=== PATIENT | female | born 1960 | race Caucasian/White ===

== ENCOUNTER → 2018-08-26 | Outpatient (CLI) | payer OTHER ==
--- NOTE | 2018-08-28 11:43 | MM ---
Reason for exam: screening (asymptomatic). Last mammogram was performed 5 years and 5 months ago. History: Patient is postmenopausal and has history of high-risk lesion on a previous biopsy at age 42. Excisional biopsy of the left breast, August 07, 2002. Taking estrogen for 4 years. Physical Findings: A clinical breast exam by your physician is recommended on an annual basis and results should be correlated with mammographic findings. MG Screening Mammo w CAD Bilateral CC and MLO view(s) were taken. Prior study comparison: March 20, 2013, bilateral digital screening mammo w/CAD. May 28, 2005, CAD bilateral diagnostic mammogram. The breast tissue is heterogeneously dense. This may lower the sensitivity of mammography. Stable distortion left breast from prior excision. No significant changes when compared with prior studies. ASSESSMENT: Benign, BI-RAD 2 RECOMMENDATION: Routine screening mammogram of both breasts in 1 year.
== END | disposition home or self-care (01) ==
LOC: RADMAMWWP 15:13
PROVIDERS: ATTEND Family Medicine
DX: Z12.31 Encounter for screening mammogram for malignant neoplasm of breast (principal)
CPT/HCPCS: 77067

== ENCOUNTER → 2018-10-08 | Outpatient (CLI) | payer OTHER ==
[2018-10-08 17:36] LABS: Basophils # (A) 0.1 k/uL (0-0.2); Basophils % (A) 1 %; Eosinophils # (A) 0.2 k/uL (0-0.7); Eosinophils % (A) 3 %; HCT 46.4 % (34.0-46.0); HGB 14.9 gm/dL (11.4-16.0); Lymphocytes # (A) 3.1 k/uL (1.0-4.8); Lymphocytes % (A) 44 %; MCHC 32.1 g/dL (31.0-37.0); MCV 93.5 fL (80.0-100.0); Mean Platelet Volume 7.4; Monocytes # (A) 0.4 k/uL (0-1.0); Monocytes % (A) 5 %; Neutrophils # (A) 3.2 k/uL (1.3-7.7); Neutrophils % (A) 45 %; Platelet Count 272 k/uL (150-450); RBC 4.96 m/uL (3.80-5.40); RDW 12.8 % (11.5-15.5); WBC 7.1 k/uL (3.8-10.6)
[2018-10-08 17:42] LABS: Appearance,Urine Cloudy (Clear); Bilirubin,Urine Negative (Negative); Blood,Urine Small (Negative); Color,Urine Yellow; Glucose,Urine (UA) Negative (Negative); Ketones,Urine Negative (Negative); Leukocyte Esterase,Urine Negative (Negative); Mucus,Urine Occasional /hpf; Nitrite,Urine Negative (Negative); Protein,Urine Negative (Negative); RBC,Urine 8 /hpf (0-5); Specific Gravity,Urine 1.016 (1.001-1.035); Squamous Epithelial Cell,Urine <1 /hpf (0-4); Urobilinogen,Urine <2.0 mg/dL (<2.0); WBC,Urine 6 /hpf (0-5)
[2018-10-08 18:00] LABS: Anion Gap 10 mmol/L; Blood Urea Nitrogen 16 mg/dL (7-17); Calcium 9.6 mg/dL (8.4-10.2); Carbon Dioxide 25 mmol/L (22-30); Chloride 104 mmol/L (98-107); Glucose 91 mg/dL (74-99); Sodium 139 mmol/L (137-145)
== END | disposition home or self-care (01) ==
LOC: LABPAT 15:47
PROVIDERS: ATTEND Urology
DX: Z01.812 Encounter for preprocedural laboratory examination (principal); T83.711A Erosion of implanted vaginal mesh to surrounding organ or tissue, initial encounter
CPT/HCPCS: 80048; 81001; 85025; 87086

== ENCOUNTER → 2019-09-19 | Outpatient (CLI) | payer OTHER ==
--- NOTE | 2019-09-20 16:20 | CT ---
EXAMINATION TYPE: CT abdomen pelvis w con DATE OF EXAM: 09/19/2019 COMPARISON: None HISTORY: hematuria CT DLP: 583.8 mGycm Automated exposure control for dose reduction was used. TECHNIQUE: Helical acquisition of images from the lung bases through the pelvis have been completed. CONTRAST: Performed with Oral Contrast and with IV Contrast, patient injected with 100 mL of Isovue 300. FINDINGS: LUNG BASES: No significant abnormality is appreciated. AORTA: No significant abnormality is appreciated. LIVER/GB: Liver shows no mass. Patient is post cholecystectomy. PANCREAS: No significant abnormality is seen. SPLEEN: No significant abnormality is seen. ADRENALS: No significant abnormality is seen. KIDNEYS: There is a large exophytic low dense focus at the mid to lower pole the left kidney anterior ly measuring 6.2 x 5.2 x 6.7 cm which shows peripheral calcifications. Additional hypodense focus in the medullary aspect of the left kidney measures approximately 2.4 cm. No significant enhancement. No hydronephrosis bilaterally. REPRODUCTIVE ORGANS: Not seen. BOWEL: No significant abnormality is seen. FREE AIR: No Free Air visible. ASCITES: None visible. PELVIC ADENOPATHY: None visualized. RETROPERITONEAL ADENOPATHY: No Retroperitoneal Adenopathy visible. URINARY BLADDER: No significant abnormality is seen. At the base of the bladder there is a focal met allic density present possibly at the level of the urethra measuring approximately 4 to 5 mm in size. OSSEOUS STRUCTURES: Bilateral metallic densities are also present at the level of the pubic rami ernesto aterally. Degenerative disc disease and lumbar spine. . IMPRESSION: BOSNIAK CYST CATEGORY IIF LESION, FOLLOW-UP. ABNORMAL METALLIC DENSITY AT BASE OF THE BLADDER, CONSID ER CYSTOSCOPY. Postop changes.
== END | disposition home or self-care (01) ==
LOC: RADCTMAIN 07:34
PROVIDERS: ATTEND Urology
DX: N28.1 Cyst of kidney, acquired (principal); R93.41 Abnormal radiologic findings on diagnostic imaging of renal pelvis, ureter, or bladder
CPT/HCPCS: 74177; Q9967 ×2

== ENCOUNTER → 2019-10-07 | Outpatient (CLI) | payer OTHER ==
--- NOTE | 2019-10-07 09:35 | BD ---
EXAMINATION TYPE: Axial Bone Density DATE OF EXAM: 10/07/2019 COMPARISON: 05/28/2005 CLINICAL HISTORY: M 81.0 Height: 61.5 Weight: 130.3 FRAX RISK QUESTIONS: Alcohol (3 or more units per day): no Family History (Parent hip fracture): no Glucocorticoids (More than 3mos): no (Ex: prednisone, prednisolone, methylprednisolone, dexamethasone, and hydrocortisone). History of Fracture in Adulthood: no Secondary Osteoporosis: 1. Type 1 Diabetes: no 2. Hyperthyroidism: no 3. Menopause before 45: no 4. Malnutrition: no 5. Chronic liver disease: no Rheumatoid Arthritis: no Current Tobacco Use: no RISK FACTORS HISTORY OF: Family History of Osteoporosis: unsure Active: sometimes Diet low in dairy products/other sources of calcium: yes Postmenopausal woman: 2003 hysterectomy Lost more than 2 inches in height since high school: no MEDICATIONS: lipitor, vit d2 Additional History: EXAM MEASUREMENTS: Bone mineral densitometry was performed using the [email or web address] System. Bone mineral density as measured about the Lumbar spine is: ----- L1-L4(G/cm2): 1.017 T Score Values are as follows: ----- L2: -0.7 ----- L3: -0.7 ----- L4: -1.8 ----- L1-L4: -1.4 Bone mineral density has: increased 7.9 % since study of: 05.28.2005 Bone mineral density about the R hip (g/cm2): 0.806 Bone mineral density about the L hip (g/cm2): 0.884 T Score values are as follows: -----R Neck: -1.7 -----L Neck: -1.1 -----R Total: -1.2 -----L Total: -1.1 Bone mineral density has: decreased -10.9 % since study of: 05.28.2005 IMPRESSION: Osteopenia (T Score between -2.5 and -1). There is slightly increased risk of fracture and the patient may be considered for treatment. Re-Screen 2-5 years. NOTE: T-SCORE=SD OF THE YOUNG ADULT MEAN.
--- NOTE | 2019-10-08 09:03 | MM ---
Reason for exam: screening (asymptomatic). Last mammogram was performed 1 year and 1 month ago. History: Patient is postmenopausal and has history of high-risk lesion on a previous biopsy at age 42. Excisional biopsy of the left breast, August 07, 2002. Taking estrogen for 4 years. Physical Findings: A clinical breast exam by your physician is recommended on an annual basis and results should be correlated with mammographic findings. MG Screening Mammo w CAD Bilateral CC and MLO view(s) were taken. Prior study comparison: August 26, 2018, bilateral MG screening mammo w CAD. March 20, 2013, bilateral digital screening mammo w/CAD. The breast tissue is heterogeneously dense. This may lower the sensitivity of mammography. Benign appearing bilateral calcifications. No suspicious abnormality on the left breast. New right upper inner quadrant posterior depth focal asymmetry. Post surgical change on the left breast. ASSESSMENT: Incomplete: need additional imaging evaluation, BI-RAD 0 RECOMMENDATION: Special view mammogram of the right breast. If lesion persists on supplemental views, image directed ultrasound is recommended. [facility] will attempt to contact patient to return for supplemental views and ultrasound if indicated.
== END | disposition home or self-care (01) ==
LOC: RADMAMWWP 06:59
PROVIDERS: ATTEND Family Medicine
DX: Z12.31 Encounter for screening mammogram for malignant neoplasm of breast (principal); M85.80 Other specified disorders of bone density and structure, unspecified site
CPT/HCPCS: 77067; 77080

== ENCOUNTER → 2019-10-20 | Outpatient (CLI) | payer OTHER ==
--- NOTE | 2019-10-20 11:54 | MM ---
Reason for exam: additional evaluation requested from abnormal screening. Last mammogram was performed less than 1 month ago. History: Patient is postmenopausal and has history of high-risk lesion on a previous biopsy at age 42. Excisional biopsy of the left breast, August 07, 2002. Took estrogen for 4 years. Physical Findings: Nurse did not find any significant physical abnormalities on exam. MG Work Up Mamm w CAD RT Spot compression CC, spot compression MLO, and ML view(s) were taken of the right breast. Prior study comparison: October 07, 2019, bilateral MG screening mammo w CAD. August 26, 2018, bilateral MG screening mammo w CAD. The breast tissue is heterogeneously dense. This may lower the sensitivity of mammography. Benign appearing calcifications in the right breast. Medial asymmetry appears similar back to 2012 and no definitive correlate on MLO or ML. These results were verbally communicated with the patient and result sheet given to the patient on 10/20/19. ASSESSMENT: Incomplete: need additional imaging evaluation, BI-RAD 0 RECOMMENDATION: Ultrasound. (left) left breast pain
--- NOTE | 2019-10-20 11:56 | USB ---
Reason for exam: additional evaluation requested from abnormal screening. History: Patient is postmenopausal and has history of high-risk lesion on a previous biopsy at age 42. Excisional biopsy of the left breast, August 07, 2002. Took estrogen for 4 years. US Breast Workup Limited LT Left limited breast ultrasound including focal area of concern, retroareolar and axilla demonstrates no cystic or solid lesion seen. No suspicious sonographic finding. Dense tissue throughout. These results were verbally communicated with the patient and result sheet given to the patient on 10/20/19. ASSESSMENT: Negative, BI-RAD 1 RECOMMENDATION: Return to routine screening mammogram schedule for both breasts. Manage patient on a clinical basis.
== END | disposition home or self-care (01) ==
LOC: RADMAMWWP 10:28
PROVIDERS: ATTEND Family Medicine
DX: R92.8 Other abnormal and inconclusive findings on diagnostic imaging of breast (principal)
CPT/HCPCS: 77065

== ENCOUNTER → 2020-10-06 | Outpatient (CLI) | payer OTHER ==
--- NOTE | 2020-10-06 15:58 | CT ---
EXAMINATION TYPE: CT abdomen pelvis wo/w con DATE OF EXAM: 10/06/2020 COMPARISON: 09/19/2019 HISTORY: 60-year-old female N28.1, Left renal cyst. TECHNIQUE: Contiguous axial scanning of the abdomen and pelvis before and after administration of 100 ml Isovue 300 IV contrast. Delayed images through the kidneys and coronal/sagittal reconstructions performed. CT DLP: 1864 mGycm Automated exposure control for dose reduction was used. FINDINGS: Heart normal size without pericardial effusion. Lung bases clear without pleural effusion. Tiny hiatal hernia. No focal liver lesion or biliary ductal dilatation. Portal venous system is patent. Cholecystectomy clips. Adrenal glands, spleen, and pancreas appear within normal limits. There is mild right-sided hydronephrosis with a 6 mm calculus at the upper right ureter. Additional few subcentimeter cortical hypodensities in the right kidney too small for accurate CT minor racterization, likely tiny cortical cysts. Larger 1.9 cm centrally located left mid pole renal cyst is unchanged. A cystic lesion along the anterior mid left kidney entirely exophytic measures 6.1 x 5.1 cm versus 6. 2 x 5.1 cm, previously, unchanged. Peripheral rim calcifications measure up to 2.5 mm thick. No addit ional associated complexity. No dilated small bowel, free fluid, or free air. Moderate prostatic calcifications infrarenal abdominal aorta and common iliac arteries. Mild circumferential wall thickening ascending colon and proximal transverse colon may relate to poor distention. No significant stool burden. Mild diverticular change along the proximal sigmoid colon. Bladder urine distended. Uterus surgically absent. Note that neither ovary is clearly visualized. Rig ht sided pelvic lymph nodes. No abnormal fluid collection the pelvis or pelvic lymphadenopathy. Bones: Mild degenerative change at the hips. Moderate degenerative disc disease L2-L3. IMPRESSION: 1. A 6 MM CALCULUS AT THE UPPER RIGHT URETER WITH MILD OBSTRUCTIVE UROPATHY. CORRELATE FOR RENAL COLI C SYMPTOMS. 2. MILDLY COMPLEX CYST MEASURING 6.1 X 5.1 CM EXOPHYTIC FROM THE ANTERIOR MID LEFT KIDNEY SHOWS THICK ENED PERIPHERAL CALCIFICATIONS. STABLE FOR 1 YEAR 1 MONTH. THIS CAN BE CLASSIFIED A BOSNIAK CATEGO RY 2F CYST AND ANNUAL SURVEILLANCE FOR A TOTAL OF 5 YEARS IS RECOMMENDED. 3. ADDITIONAL SMALLER BENIGN CORTICAL CYSTS WITHIN THE KIDNEYS. 4. MILD CIRCUMFERENTIAL WALL THICKENING ALONG THE ASCENDING AND PROXIMAL TRANSVERSE COLON MAY RELATE TO POOR DISTENTION. CORRELATE TO EXCLUDE NONSPECIFIC MILD COLITIS. 5. MILD PROXIMAL SIGMOID DIVERTICULOSIS.
== END | disposition home or self-care (01) ==
LOC: RADCTMAIN 12:55
PROVIDERS: ATTEND Urology
DX: N20.1 Calculus of ureter (principal); K57.30 Diverticulosis of large intestine without perforation or abscess without bleeding; N28.1 Cyst of kidney, acquired; K63.89 Other specified diseases of intestine
CPT/HCPCS: 74178; Q9967

== ENCOUNTER → 2020-10-10 | Outpatient (CLI) | payer OTHER ==
--- NOTE | 2020-10-10 15:35 | XR ---
KUB HISTORY: N 20.1, abdomen pain From a KUB and [address] scan 10/06/2020 Surgical clips present right upper quadrant. Large calcified renal cyst is again noted in the left up per quadrant. Diverticular changes are present associated with the sigmoid colon. Postop changes are noted at the pubic bones. Proximal right ureteral calcification is not seen. There is a calcification present measuring approximately 4 mm in the right hemipelvis which correlates to only outside the le suzi of the distal ureter. Bones are showing degenerative disc changes, spinal curvature. IMPRESSION: Calcifications in the pelvis not felt likely to represent ureteral calculi.
== END | disposition home or self-care (01) ==
LOC: RADXRMAIN 14:23
PROVIDERS: ATTEND Urology
DX: N20.1 Calculus of ureter (principal)
CPT/HCPCS: 74018

== ENCOUNTER → 2020-10-26 | Outpatient (CLI) | payer OTHER ==
--- NOTE | 2020-10-26 17:32 | XR ---
EXAMINATION TYPE: XR abdomen 1V DATE OF EXAM: 10/26/2020 8:25 AM CLINICAL HISTORY: Calculus TECHNIQUE: Supine images of the abdomen and pelvis were obtained COMPARISON: 10/10/[address] abdomen pelvis 10/06/2020. FINDINGS: Surgical clips in the right upper quadrant. Large calcified left renal cyst redemonstrated in the left upper quadrant. Nonspecific bowel gas pattern. Right pelvic phleboliths redemonstrated. A 6 mm calcification within the right hemipelvis was not seen on 10/10/2020 KUB comparison. Osseous str uctures are intact. IMPRESSION: Right pelvic 6 mm calcification not seen on 10/10/2020 comparison likely represents distal ureteral ca lculus.
== END | disposition home or self-care (01) ==
LOC: RADXRMAIN 08:12
PROVIDERS: ATTEND Urology
DX: N20.1 Calculus of ureter (principal)
CPT/HCPCS: 74018

== ENCOUNTER → 2020-10-31 | Outpatient (CLI) | payer OTHER ==
--- NOTE | 2020-10-31 09:54 | XR ---
EXAMINATION TYPE: XR KUB DATE OF EXAM: 10/31/2020 COMPARISON: 10/10/2020 HISTORY: Stone TECHNIQUE: One view abdominal series FINDINGS: The osseous structures are intact. The bowel gas pattern is nonspecific. Large rounded calcification in the left upper quadrant noted compatible with calcified cyst. Pelvic densities overlying the pubi c rami are noted. Surgical clips in the gallbladder fossa. Degenerative change of the spine. There ap pears to be a persistent calcification the right hemipelvis measuring 2 mm in diameter. IMPRESSION: 1. Suspicious calcification right hemipelvis measuring 2 mm.
== END | disposition home or self-care (01) ==
LOC: RADXRMAIN 08:39
PROVIDERS: ATTEND Urology
DX: N20.1 Calculus of ureter (principal)
CPT/HCPCS: 74018

== ENCOUNTER → 2020-11-09 | Outpatient (CLI) | payer OTHER ==
[2020-11-09 12:46] LABS: Basophils % (A) 1 %; Eosinophils # (A) 0.1 k/uL (0-0.7); Eosinophils % (A) 2 %; HCT 42.7 % (34.0-46.0); HGB 14.3 gm/dL (11.4-16.0); Lymphocytes # (A) 2.5 k/uL (1.0-4.8); Lymphocytes % (A) 36 %; MCH 30.6 pg (25.0-35.0); MCHC 33.4 g/dL (31.0-37.0); MCV 91.6 fL (80.0-100.0); Mean Platelet Volume 7.9; Monocytes # (A) 0.3 k/uL (0-1.0); Monocytes % (A) 4 %; Neutrophils % (A) 56 %; Platelet Count 290 k/uL (150-450); RBC 4.66 m/uL (3.80-5.40); RDW 13.1 % (11.5-15.5); WBC 7.1 k/uL (3.8-10.6)
[2020-11-09 13:01] LABS: African American GFR (CKD) >90 (>60 ml/min/1.73 sqM); Anion Gap 8 mmol/L; Blood Urea Nitrogen 17 mg/dL (7-17); Calcium 9.6 mg/dL (8.4-10.2); Carbon Dioxide 24 mmol/L (22-30); Chloride 106 mmol/L (98-107); Glucose 115 mg/dL (74-99); Non-African American GFR(CKD) >90 (>60 ml/min/1.73 sqM); Potassium 4.2 mmol/L (3.5-5.1); Sodium 138 mmol/L (137-145)
[2020-11-09 13:14] LABS: Appearance,Urine Clear (Clear); Bacteria,Urine Rare /hpf; Bilirubin,Urine Negative (Negative); Blood,Urine Small (Negative); Color,Urine Yellow; Glucose,Urine (UA) Negative (Negative); Ketones,Urine Negative (Negative); Leukocyte Esterase,Urine Trace (Negative); Mucus,Urine Rare /hpf; Nitrite,Urine Negative (Negative); PH, Urine 6.5 (5.0-8.0); Protein,Urine Negative (Negative); RBC,Urine 15 /hpf (0-5); Squamous Epithelial Cell,Urine 1 /hpf (0-4); Urobilinogen,Urine <2.0 mg/dL (<2.0); WBC,Urine 2 /hpf (0-5)
== END | disposition home or self-care (01) ==
LOC: LABPAT 12:05
PROVIDERS: ATTEND Urology
DX: Z01.818 Encounter for other preprocedural examination (principal); N20.1 Calculus of ureter
CPT/HCPCS: 80048; 81001; 85025; 87086

== ENCOUNTER 2020-11-16 08:27 | Day surgery (SDC) | payer OTHER ==
[2020-11-15 13:20] VITALS: BMI 27.1
--- NOTE | 2020-11-15 16:36 | P.GSHP ---
History of Present Illness H&P Date: 11/15/20 60 yo female with intermittent ureteral colic due to a 4 mm distal right ureteral stone who comes for right ureteroscopy with laser lithotripsy The risks complications and alternatives have been discussed. - Constitutional Constitutional: Denies chills, Denies fever - EENT Eyes: denies blurred vision, denies pain Ears, nose, mouth and throat: Denies headache, Denies sore throat - Cardiovascular Cardiovascular: Denies chest pain, Denies shortness of breath - Respiratory Respiratory: Denies cough, Denies 7 - Gastrointestinal Gastrointestinal: Denies abdominal pain, Denies diarrhea, Denies nausea, Denies vomiting - Genitourinary (Female) Genitourinary: Denies dysuria, Denies hematuria - Genitourinary (Male) Genitourinary: Denies dysuria, Denies hematuria - Musculoskeletal Musculoskeletal: Denies myalgias - Integumentary Integumentary: Denies pruritus, Denies rash - Neurological Neurological: Denies numbness, Denies weakness - Psychiatric Psychiatric: Denies anxiety, Denies depression - Endocrine Endocrine: Denies fatigue, Denies weight change Past Medical History Past Medical History: Hyperlipidemia Additional Past Medical History / Comment(s): osteoporosis, kidney stones History of Any Multi-Drug Resistant Organisms: None Reported Past Surgical History: Bladder Surgery, Section, Cholecystectomy, Hysterectomy Additional Past Surgical History / Comment(s): bladder suspension with urethral graft, c/s x3, lt breast biopsy Past Anesthesia/Blood Transfusion Reactions: No Reported Reaction Smoking Status: Former smoker - Past Family History Mother Family Medical History: No Reported History Medications and Allergies Home Medications Medication Instructions Recorded Confirmed Type Atorvastatin [Lipitor] 20 mg PO HS 10/10/18 11/15/20 History Ergocalciferol (Vitamin D2) 50,000 unit PO Q7D 10/10/18 11/15/20 History [Vitamin D2] Vitamin C/Biotin [Hair, Skin and 1 tab PO DAILY 11/15/20 11/15/20 History Nails] Allergies Allergy/AdvReac Type Severity Reaction Status Date / Time No Known Allergies Allergy Verified 11/15/20 13:20 Surgical - Exam - General well developed, well nourished, moderate distress - Eyes PERRL - ENT normal mucosa - Neck trachea midline - Respiratory normal expansion, normal respiratory effort - Cardiovascular Rhythm: regular - Abdomen Abdomen: soft, non tender - Integumentary no rash, no growths - Neurologic normal coordination, normal sensation - Musculoskeletal normal gait, normal posture - Psychiatric oriented to time, oriented to person, oriented to place, speech is normal, memory intact Results - Imaging Abdominal x-ray: report reviewed, image reviewed CT scan - abdomen: report reviewed, image reviewed CT scan - pelvis: report reviewed, image reviewed Assessment and Plan Assessment: Impression: right ureteral stone Plan: cysto with right ureteroscopy and laser lithotripsy
[~2020-11-16 08:27] MED LIST: DEXAMETHASONE SOD PHOSPHATE 4 MG/ML 1 ML VIAL IV ONE; HYDROmorphone 0.5 MG/0.5 ML SYRINGE IVP PRN; LACTATED RINGERS 1,000 ML IV SCH; ONDANSETRON 4 MG/2 ML VIAL IVP ONE
[2020-11-16 08:55] VITALS: RESP 16
[2020-11-16] MEDS ORDERED: LIDOCAINE 1% (10MG/ML) FOR IV START INTRADERMA ONE (08:58)
--- NOTE | 2020-11-16 08:59 | XR ---
EXAMINATION TYPE: XR KUB DATE OF EXAM: 11/16/2020 8:41 AM CLINICAL HISTORY: Right-sided kidney stones. TECHNIQUE: Two Upright KUB images of the abdomen are obtained. COMPARISON: Abdominal x-ray October 31, 2020. CT October 06, 2020. FINDINGS: Persistent 2-3 calcifications right pelvis measuring 3 to 4 mm in size correspond to phlebo liths and possible distal ureteral calculus not significantly changed from most recent x-ray. Cholecystectomy clips. Overall nonobstructive bowel gas pattern. Exophytic lateral rim calcified cyst from the left kidney redemonstrated. IMPRESSION: As above.
[2020-11-16] MEDS ORDERED: PROPOFOL 10 MG/ML 20 ML VIAL IV ONE (09:32)
[2020-11-16] MEDS ORDERED: fentaNYL (PF) 50 MCG/ML 2 ML AMP ONE (09:32)
[2020-11-16] MEDS ORDERED: MIDAZOLAM 2 MG/2 ML VIAL ONE (09:32)
[2020-11-16] MEDS ORDERED: LIDOCAINE 1% INJ 10MG/ML (20 ML MDV) ONE (09:32)
[2020-11-16] MEDS ORDERED: ePHEDrine SULFATE/0.9% NACL/PF 50 MG/5 ML SYRINGE IV ONE (09:32)
--- NOTE | 2020-11-16 10:38 | FL ---
EXAMINATION TYPE: FL guidance operating room DATE OF EXAM: 11/16/2020 HISTORY: Fluoroscopy time 3 seconds of fluoroscopy provided. IMPRESSION: 1. Fluoroscopy time.
--- NOTE | 2020-11-16 10:39 | P.OP ---
Date of Procedure: 11/16/20 Preoperative Diagnosis: Right ureteral stone Postoperative Diagnosis: Same Procedure(s) Performed: Cystoscopy, right ureteroscopy with laser lithotripsy Anesthesia: JESSICA Surgeon: Shyam Oh Estimated Blood Loss (ml): 0 Pathology: other (Stone) Condition: stable Disposition: PACU Indications for Procedure: The patient is 60. There is a history of stones. She has a 4 mm distal right ureteral stone for the last couple weeks she's been unable to pass. She comes for ureteroscopy and laser lithotripsy on the right side Description of Procedure: The patient is brought to the operating suite. She's given general anesthesia. She's placed in lithotomy position with a sterile prep and drape. Fluoroscopy identifies the stone in the right distal ureter. Cystoscopy Foroblique lens and 21-Bolivian sheath identifies normal urethra. Ureteral orifices are normal. The bladder mucosa is unremarkable. I dilate the right ureteral orifice within a cone-tipped catheter. Pass the 7-Bolivian mini ureteroscope up the right ureter to's the stone. With the 200 laser probe the stone was broken into tiny pieces and flushed out of the ureter. There is not a significant amount of edema for a stent to be placed. Bladder strain and the stone fragments are sent to pathology. The patient is awakened and will be discharged home upon recovery. Condition is good.
[2020-11-16 10:42] VITALS: TEMP 97.8
[2020-11-16 11:49] VITALS: BP 172/81; PULSE 79
== END 2020-11-16 12:03 | disposition home or self-care (01) ==
LOC: OR 08:27
PROVIDERS: ATTEND Urology
DX: N20.1 Calculus of ureter (principal); E78.5 Hyperlipidemia, unspecified; M81.0 Age-related osteoporosis without current pathological fracture; Z79.899 Other long term (current) drug therapy; Z87.442 Personal history of urinary calculi; Z98.891 History of uterine scar from previous surgery; Z90.710 Acquired absence of both cervix and uterus; Z90.49 Acquired absence of other specified parts of digestive tract; Z98.890 Other specified postprocedural states; Z87.891 Personal history of nicotine dependence
CPT/HCPCS: 82365; 74018; 52353; C1758; C1769; J2250; J1100; J2405; J0690; J2001; J3010; J2704

== ENCOUNTER → 2021-01-27 | Outpatient (CLI) | payer OTHER ==
--- NOTE | 2021-01-30 11:04 | MM ---
Reason for exam: screening (asymptomatic). Last mammogram was performed 1 year and 3 months ago. History: Patient is postmenopausal and has history of high-risk lesion on a previous biopsy at age 42. Family history of breast cancer in maternal grandmother. Excisional biopsy of the left breast, August 07, 2002. Took estrogen for 4 years. Physical Findings: A clinical breast exam by your physician is recommended on an annual basis and results should be correlated with mammographic findings. MG Screening Mammo w CAD Bilateral CC and MLO view(s) were taken. Prior study comparison: October 07, 2019, bilateral MG screening mammo w CAD. August 26, 2018, bilateral MG screening mammo w CAD. The breast tissue is heterogeneously dense. This may lower the sensitivity of mammography. Finding #1: There is stable architectural distortion in the upper outer quadrant, middle position of the left breast consistent with known excisional change. Finding #2: There are typically benign round, regional calcifications in both breasts, greater in the right breast. Indistinct grouped calcifications left breast. New finding and more defined since October 07, 2019 and August 26, 2018. ASSESSMENT: Incomplete: need additional imaging evaluation, BI-RAD 0 RECOMMENDATION: Special view mammogram of the right breast. [facility] will attempt to contact patient to return for supplemental views.
== END | disposition home or self-care (01) ==
LOC: RADMAMWWP 09:47
PROVIDERS: ATTEND Physician Assistant
DX: Z12.31 Encounter for screening mammogram for malignant neoplasm of breast (principal)
CPT/HCPCS: 77067

== ENCOUNTER → 2021-02-02 | Outpatient (CLI) | payer OTHER ==
--- NOTE | 2021-02-02 09:38 | MM ---
Reason for exam: additional evaluation requested from abnormal screening. Last mammogram was performed less than 1 month ago. History: Patient is postmenopausal and has history of high-risk lesion on a previous biopsy at age 42. Family history of breast cancer in maternal grandmother. Excisional biopsy of the left breast, August 07, 2002. Took estrogen for 4 years. Physical Findings: Nurse did not find any significant physical abnormalities on exam. MG Work Up Mamm w CAD RT CC with magnification, LM with magnification, and LM view(s) were taken of the right breast. Prior study comparison: January 27, 2021, bilateral MG screening mammo w CAD. October 20, 2019, right breast MG work up mamm w CAD RT. Finding: There is a faint 2.8cm indeterminate, heterogeneous, grouped/clustered calcifications in the slight upper inner quadrant, posterior position of the right breast. These results were verbally communicated with the patient and result sheet given to the patient on 02/02/21. ASSESSMENT: Suspicious, BI-RAD 4 RECOMMENDATION: Stereotactic core biopsy of the right breast. Called Dr. Cruz's office with mammographic findings. Patient does not want to schedule biopsy now. States she needs to speak with insurance and family physician. Dr. Cruz's office notified to follow up with patient. PRELIMINARY REPORT CALLED AND FAXED TO DR. CRUZ ON 02/02/21.
== END | disposition home or self-care (01) ==
LOC: RADMAMWWP 07:01
PROVIDERS: ATTEND Family Medicine
DX: R92.8 Other abnormal and inconclusive findings on diagnostic imaging of breast (principal)
CPT/HCPCS: 77065

== ENCOUNTER → 2021-02-27 | Day surgery (SDC) | payer OTHER ==
[2021-02-27 09:22] VITALS: RESP 18
[2021-02-27 10:54] VITALS: BP 151/78; PULSE 71; TEMP 98.3
--- NOTE | 2021-02-27 18:53 | MM ---
EXAMINATION TYPE: MG stereo VAD BX RT DATE OF EXAM: 02/27/2021 COMPARISON: 01/27/2021 and 02/02/2021 CLINICAL HISTORY: 60-year-old female referred for stereotactic core needle biopsy of a large group of amorphous 1:00 posterior right breast microcalcifications. TECHNIQUE: Stereotactic guided core biopsy of the posterior right breast. FINDINGS: The procedure of stereotactic guided core biopsy was explained to the patient. Benefits, alternatives, and risks were discussed. An informed consent was then obtained. The [facility] pathway for biopsy was chosen. Shortness pathway was a CC from above approach. I performed the localization followed by the remainder of the procedure. A vacuum assisted biopsy gun was used to obtain 6 core samples. The patient tolerated the procedure well without any immediate complication. The patient was kept in the radiology department for short stay after the procedure and then discharged home in stable condition. Targeted calcifications are identified in specimen mammogram. Post biopsy mammogram shows the clip to appear in satisfactory position relative to the targeted area of concern on the preprocedure images. IMPRESSION: SUCCESSFUL, UNCOMPLICATED STEREOTACTIC GUIDED CORE BIOPSY OF A LARGE GROUP OF AMORPHOUS CALCIFICATIONS IN THE POSTERIOR 1:00 RIGHT BREAST. FULL PATHOLOGY RESULTS TO FOLLOW. Pathology Results: Benign RIGHT BREAST, CORE BIOPSY: Hypocellular fibrosis with microcalcification and sclerosing adenosis (see note). Negative for diagnostic in situ or invasive carcinoma. Recommendation Follow up mammogram of the right breast in 6 months. MTDD
== END ==
LOC: RADMAMWWP 09:02
PROVIDERS: ATTEND Family Medicine
DX: R92.0 Mammographic microcalcification found on diagnostic imaging of breast (principal); N60.31 Fibrosclerosis of right breast; R92.8 Other abnormal and inconclusive findings on diagnostic imaging of breast
CPT/HCPCS: 88305; 88342; 88341; 19081; A4648; J2001

== ENCOUNTER → 2022-07-04 | Outpatient (CLI) | payer OTHER ==
--- NOTE | 2022-07-05 18:30 | MM ---
Reason for Exam: Screening (asymptomatic). Last mammogram was performed 1 year(s) and 6 month(s) ago. Patient History: Menarche at age 11. Left ovary removed at age 40. Right ovary removed at age 40. Hysterectomy at age 40. Postmenopausal. Patient used Estrogen for 4 years. 02/27/2021, Benign Core Biopsy on the right side. 08/07/2002, Benign Excisional Biopsy on the left side. Maternal grandmother had breast cancer at or over age 50. Niece had breast cancer, age 40. Risk Values: Solange 5 year model risk: 1.7%. NCI Lifetime model risk: 7.2%. Prior Study Comparison: 10/20/2019 Right Diagnostic Mammogram, [facility]. 01/27/2021 Bilateral Screening Mammogram, [facility]. 02/02/2021 Right Diagnostic Mammogram, [facility]. Tissue Density: The breast tissue is heterogeneously dense. This may lower the sensitivity of mammography. Findings: Analyzed By CAD. Redemonstrated 1:00 microcalcifications middle to posterior depth within the right breast with microclip from biopsy that was performed last year. Benign bilateral oil cyst calcifications. Unchanged distortion upper outer quadrant left breast related to prior excisional surgery. Areas of asymmetric density are unchanged. No significant change from prior exams. Overall Assessment: Benign, BI-RAD 2 Management: Screening Mammogram of both breasts in 1 year. 1. Patient should continue monthly self breast exams. 2. A clinical breast exam by your physician is recommended on an annual basis. 3. This exam should not preclude additional follow-up of suspicious palpable abnormalities. Electronically signed and approved by: Erica Raman M.D. Radiologist
== END | disposition home or self-care (01) ==
LOC: RADMAMWWP 16:44
PROVIDERS: ATTEND Family Medicine
DX: Z12.31 Encounter for screening mammogram for malignant neoplasm of breast (principal); Z78.0 Asymptomatic menopausal state; Z80.3 Family history of malignant neoplasm of breast
CPT/HCPCS: 77063; 77067

== ENCOUNTER → 2025-05-17 | Day surgery (SDC) | payer MEDICARE, OTHER ==
[2025-05-17] MEDS: ALPRAZolam 0.25 MG TAB PO PRN (07:35)
[2025-05-17 07:44] VITALS: RESP 16
[2025-05-17 08:47] VITALS: BP 123/82; PULSE 65; TEMP 98.1
--- NOTE | 2025-05-25 09:17 | MM ---
Risk Values: Solange 5 year model risk: 1.2%. NCI Lifetime model risk: 4.5%. Prior Study Comparison: 09/16/2023 Bilateral MG 3D screening mammo w/cad, [facility]. 04/30/2025 Bilateral MG 3D screening mammo w/cad, [facility]. 05/05/2025 Right MG 3D work up w/cad RT, [facility]. Pathology Description: Location: upper inner quadrant, posterior. Marker Left Behind. Specimen Radiograph. Approach: CC FA Needle Type: Eviva Cores: 7 Skin Nicks: 1 Gauge: 9 The amorphous calcification middle to posterior depth 12:00 are identified. These are noted to be increasing from prior exam, located anterior to a previous biopsy clip. Calcifications are targeted from a superior approach. The procedure of stereotactic guided core biopsy was explained to the patient. Benefits, alternatives, and risks were discussed. An informed consent was then obtained. The shortness pathway for biopsy was chosen. Shortness pathway was CC from above approach. A vacuum assisted biopsy gun was used to obtain 7 core samples. The patient tolerated the procedure well without any immediate complication. The patient was kept in the radiology department for short stay after the procedure and then discharged home in stable condition. Developing hematoma noted on the postbiopsy image so prolong direct pressure was applied. Targeted calcifications are identified in specimen mammogram. Patient was taken to a dedicated mammography suite for post procedure clip placement verification. Post biopsy mammogram shows the clip at the 12:00 position middle depth in the region of calcifications. After biopsy, there is a 2 cm hematoma noted. IMPRESSION: SUCCESSFUL, UNCOMPLICATED STEREOTACTIC GUIDED CORE BIOPSY OF INCREASING 12:00 AMORPHOUS CALCIFICATIONS RIGHT BREAST. JUST ANTERIOR TO A PREVIOUS BIOPSY CLIP. SMALL 2 CM POSTBIOPSY HEMATOMA NOTED. Pathology Results: Result: Benign, Fibrocystic change. Pathology and radiology were reviewed. Findings are concordant. RIGHT BREAST, STEREOTACTIC NEEDLE CORE BIOPSY: Benign breast with fibrocystic changes including sclerosing adenosis with calcifications. See note. Notes [facility] immunostain performed on block A2 and Calponin immunostain performed on block A3 each highlight a myoepithelial layer surrounding small glandular and tubular structures within the stroma. The results confirm the diagnosis of sclerosing adenosis, without evidence of invasive malignancy. All immunostains were evaluated with appropriate positive controls. Overall Assessment: Benign Management: Diagnostic Mammogram of the right breast in 6 months. Electronically signed and approved by: Erica Raman M.D. Radiologist
== END ==
LOC: RADMAMWWP 07:19
PROVIDERS: ATTEND Family Medicine
DX: N60.21 Fibroadenosis of right breast (principal)
CPT/HCPCS: 88305; 88342; 88341; 19081; A4648; J2003